=== PATIENT | female | born 1995 | race Caucasian/White ===

== ENCOUNTER 2018-09-05 06:00 | Inpatient (IN) ==
[2018-09-05] MEDS ORDERED: Famotidine 20 MG/2 ML VIAL IVP PRN (09:02)
[2018-09-05] MEDS ORDERED: Naloxone 0.4 MG/ML INJ IVP PRN (09:02)
[2018-09-05] MEDS ORDERED: Ondansetron 4 MG/2 ML VIAL IVP PRN (09:02)
[2018-09-05] MEDS ORDERED: Lidocaine -MPF 1% 5 ML AMPUL INFILT PRN (09:02)
[2018-09-05] MEDS ORDERED: *HR* Nalbuphine 10 MG/ML AMPUL IVP PRN (09:02)
[2018-09-05] MEDS ORDERED: miSOPROStol 25 MCG TABLET VG PRN (09:02)
[2018-09-05] MEDS ORDERED: Metoclopramide 10 MG/2 ML VIAL IVP PRN (09:02)
[2018-09-05] MEDS ORDERED: Ringers Solution, Lactated 1,000 ML IVC SCH (09:15)
[2018-09-05 09:35] LABS: Basophils % 0.3 %; Eosinophils # 0.1 K/mcL (0.0-0.6); Eosinophils % 0.9 %; Hematocrit 36.6 % (35.3-44.9); Hemoglobin 12.5 g/dL (11.5-15.4); Immature Granulocytes % 0.3 % (0-4); Lymphocytes # 1.8 K/mcL (0.6-4.6); Lymphocytes % 18.1 %; Mean Corpuscular HGB Conc 34.2 g/dL (31.6-35.5); Mean Corpuscular Hemoglobin 30.9 pg (28.0-33.3); Mean Corpuscular Volume 90.6 fL (83.0-100.0); Mean Platelet Volume 9.8 fL (9.4-12.4); Monocytes # 0.5 K/mcL (0.0-1.3); Neutrophils # 7.7 K/mcL (1.6-8.9); Platelet Count 238 K/mcL (140-400); Red Blood Count 4.04 M/mcL (3.82-4.97); Red Cell Distribution Width 13.5 % (11.5-14.5); Segmented Neutrophils % 75.4 %
[2018-09-05 09:42] LABS: Amphetamine Screen,Urine Negative ng/mL (Cutoff=1000); Barbiturate Screen,Urine Negative ng/mL (Cutoff=200); Benzodiazepines Screen,Urine Negative ng/mL (Cutoff=200); Cannabinoid Screen,Urine Negative ng/mL (Cutoff = 50); Cocaine Screen,Urine Negative ng/mL (Cutoff= 300); Opiate Screen,Urine Negative ng/mL (Cutoff=300); Phencyclidine Screen,Urine Negative ng/mL (Cutoff=25)
[2018-09-05 09:50] LABS: Alanine Aminotransferase 11 Units/L (7-52); Aspartate Amino Transferase 15 Units/L (13-39); BUN/Creatinine Ratio 10 (6-26); Blood Urea Nitrogen 6 mg/dL (6-20); Lactate Dehydrogenase 115 Units/L (140-271); Uric Acid 5.7 mg/dL (2.3-7.6); eGFR For Non-African Americans > 60 (> 60)
--- NOTE | 2018-09-05 10:16 | OB/GYN History & Physical ---
Date of Encounter: 09/05/18 Time of Encounter: 10:15 Assessment and Plan (1) 39 weeks gestation of Current visit: Yes Status: Acute @ 39 weeks, IOL, preeclampsia w/o severe features patient to start with cervidil, after cervidil, we'll try chawla bulb, CAT 1 History of Present Illness HPI: Ms. Sherwood is a 23 year old female @ 39+3 weeks who presents to the office for IOL. She is reporting aches and pains of but does not report LOF, VB or ctxs, feels good FM. On L&D, she presented with mild range pressures but denies symptoms of pre-eclampsia. GBS neg. Past Med Surg Social Fam HX - Past Medical History Medical history: asthma Psychiatric history: no psych history - Past Surgical History Surgical History: no surgical history - Social History Smoking Status: Current every day smoker Smokeless Tobacco Status: No Alcohol use: none Drug use: none - Family History Mother Name: layo sherwood Age: 45 Living Status: Still Living Hx Family Cardiac Disorders: (hypotenstion) Hx Family Respiratory Disorders: Yes (asthma) Hx Family Cancer: No Hx Family GI Disorders: No Hx Family Genitourinary Disorders: No Hx Family Endocrine Disorder: No Hx Family Musculoskeletal Disorders: No Hx Family Neuromuscular Disorders: No Hx Family Neurologic Disorders: No Hx Family HEENT Disorders: No Hx Family Autoimmune Disorders: No Hx Family Reproductive Disorders: No Hx Family Psychosocial Disorders: Yes (anxiety) Hx Family Medical Disorders: No Obstetrical History - Pregnancies : 1 Para: 0 Medications and Allergies Pnv Cmb#21/Iron/Folic Acid [ Complete Caplet] 1 tab PO DAILY 09/05/18 [History] Allergy/AdvReac Type Severity Reaction Status Date / Time Amoxicillin [From Augmentin] Allergy Difficulty Verified 07/15/18 07:04 Breathing clavulanic acid Allergy Difficulty Verified 07/15/18 07:04 [From Augmentin] Breathing Review of System OB All systems PM: reviewed and no additional remarkable complaints except as stated Exam - Constitutional Constitutional: no acute distress - HEENT HEENT: PERRL - Neck Neck exam: full ROM - Lungs Respiratory exam: CTAB - Cardiovascular Cardiovascular exam: RRR - Abdomen Abdomen: Present: gravid - Cervix Dilation: 0 Results Result Diagrams: 09/05/18 09:00 09/05/18 09:00 Abnormal lab results Lactate Dehydrogenase 115 Units/L (140-271) L 09/05/18 09:00 All other labs normal. - VTE Reasons for not Prescribing Prophylaxis: Treatment not Indicated - Low risk for VTE
--- NOTE | 2018-09-05 13:01 | OB Labor Progress Note ---
Date of Encounter: 09/05/18 Time of Encounter: 12:59 Labor Progress Note - Subjective Subjective: patient is feeling more of her ctxs, - Vital Signs Vital Signs: VSS - Cervix Cervix: FT - Heart Tones Heart Tones: CAT 1 - Plan Plan: she received cervidil @ 10:30Am, re-evaluate in 12 hrs
--- NOTE | 2018-09-05 16:01 | Anesthesia Evaluation PreOp ---
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: Denies Any Significant HX Other Medical History: Other (morbid obesity) Anesthesia History: No Prior Anesthetic Complications (never had NA; denies personal and family h/o GA complications), Past Anesthesia (BMTs) : Yes Alcohol Use: none Drug use: none Medications and Allergies Pnv Cmb#21/Iron/Folic Acid [ Complete Caplet] 1 tab PO DAILY 09/05/18 [History] Allergy/AdvReac Type Severity Reaction Status Date / Time Amoxicillin [From Augmentin] Allergy Difficulty Verified 07/15/18 07:04 Breathing clavulanic acid Allergy Difficulty Verified 07/15/18 07:04 [From Augmentin] Breathing - Meds/Allergy Pre-op Review Medications Reviewed: Yes Allergies Reviewed: Yes Beta Blockers on Current Med List: No Anesthesia Results - Labs 09/05/18 09:00 09/05/18 09:00 Anesthesia Exam 143/74, HR 95 O2 Sat Height 1.83 m Height 1.83 m Weight 161 kg Weight 161.3 kg NPO (# of Hours): >8hrs Pain Scale: 4 Pain Scale Used: Numeric (1 - 10) - HEENT Pupil (Motor): Pupils equal Mallampati: I Teeth: Normal Oral Opening: Greater than 3 - BOILER CONTROL ROOM OPERATOR LOC: Oriented BOILER CONTROL ROOM OPERATOR Motor: Normal RUE, Normal LUE, Normal RLE, Normal LLE, Normal Face BOILER CONTROL ROOM OPERATOR Sensory: Normal: RUE, LUE, RLE, LLE, Face - Cardiac Rhythm: Regular Murmur: None - Pulmonary Breath Sounds: bilateral Clear Respiratory Effort: Symmetrical Anesthesia Assess/Plan ASA Score: 3 Modified [place] Scale for Level of Consciousness: Cooperative, oriented, and tranquil Anesthetic Plan: Regional Autologous Blood: No Monitoring Plan: Standard Monitors Recovery Plan: Other
[2018-09-05] MEDS ORDERED: *HR* FentaNYL (PF) 100 MCG/2 ML VIAL EP ONE (16:02)
[2018-09-05] MEDS ORDERED: Bupivacaine-MPF 0.25% 10 ML VIAL EP ONE (16:02)
[2018-09-05] MEDS ORDERED: Epidural Premix (fent/bupiv) 110 ML EP SCH (16:15)
--- NOTE | 2018-09-05 18:03 | OB Labor Progress Note ---
Date of Encounter: 09/05/18 Time of Encounter: 18:02 Labor Progress Note - Subjective Subjective: patient is feeling her ctxs - Vital Signs Vital Signs: mild range pressures - Cervix Cervix: closed - Heart Tones Heart Tones: CAT 1 - Plan Plan: will remove cervidil at 10 and try cytotec, unable to place chawla due to closed cervix
[2018-09-05 18:09] LABS: Protein/Creatinine Ratio,Urine 0.4 mg/mg (0.00-0.20)
--- NOTE | 2018-09-05 22:39 | OB Labor Progress Note ---
Date of Encounter: 09/05/18 Time of Encounter: 22:37 Labor Progress Note - Subjective Subjective: Patient coping well with contractions. Has had one dose of Nubain. - Cervix Cervix: 1/50/-3 - Heart Tones Heart Tones: FHR 135 bpm, moderate variability, no accels, no decels. - Ryder Ryder: 2-3 minutes - Interventions Interventions: Cervidil removed. SVE Cervical chawla balloon placed without difficulty and 60 mL sterile water instilled. - Plan Plan: Gentle tug to chawla q hour Continue labor management Patient may have epidural when she desires.
--- NOTE | 2018-09-06 00:38 | OB Labor Progress Note ---
Date of Encounter: 09/06/18 Time of Encounter: 00:36 Labor Progress Note - Subjective Subjective: patient desires epidural - Vital Signs Vital Signs: VSS - Cervix Cervix: 1cm (chawla in place) - Heart Tones Heart Tones: CAT 1 - Plan Plan: ok for epidural, patient now has pre eclampsia based on BP and proteinuria, labs normal after chawla is out, start pitocin
--- NOTE | 2018-09-06 01:12 | Anesthesia Procedures ---
Date of Encounter: 09/06/18 Time of Encounter: 01:08 Procedures: Anesthesia - Epidural/Spinal Patient ID/Chart reviewed: Yes Patient examined: Yes OB Eval: Gestational age: 39 weeks 5 days OB Eval: : 1 OB Eval: Hx Para: 0 OB Eval: Dilated at (cm): 1 OB Eval: Contractions: Non-stressed pattern Consent Obtained: Yes Supplemental Oxygen: None/Room Air Site Prep: Aseptic Technique, Sterile prep and drape, Povidone-Iodine 1% Patient position: upright Local Anesthetic: Lidocaine 1% Amount of Local Anesthetic used: 3 Touhy Needle Gauge: 18 Touhy Needle Depth (cm): 8 Catheter Depth at Skin (cm): 13 Test Dose (1.5% Lido + Epi): Volume given (mls): 5 Test Dose Result: Negative Loading Dose: 0.25% Marcaine (mls): 5 Loading Dose: Fentanyl (mcg): 100 Loading Dose Administered: Thru Catheter Infusion Med: 0.125% Bupivacaine w/ 2 mcg/ml Fentanyl Infusion Rate (mls/hr): [address]: Tegaderm, Tape Interspace Used: L4-L5 Loss of Resistance (JOSELITO): Yes Blood: No CSF: No Paresthesia: No Procedure: successful on 1st attempt; Patient tolerated procedure well; VSS Vitals + FHT's: Please see Shakila OQUENDO's electronic records for VS entry
[2018-09-06] MEDS ORDERED: miSOPROStol 25 MCG TABLET VG PRN (06:30)
--- NOTE | 2018-09-06 06:48 | OB Labor Progress Note ---
Date of Encounter: 09/06/18 Time of Encounter: 06:44 Labor Progress Note - Subjective Subjective: patient is comfortable s/p epidural - Vital Signs Vital Signs: VSS - Cervix Cervix: chawla in - Heart Tones Heart Tones: CAT 1 - Plan Plan: 60cc in the chawla (no bulging upon tugging) cytotec 25mcg given vaginally
[2018-09-06] MEDS ORDERED: Oxytocin 20 units/ LR 1000 mL 20 UNIT/1,000 ML BAG IVC SCH (09:45)
[2018-09-06] MEDS ORDERED: *HR* FentaNYL (PF) 100 MCG/2 ML VIAL ONE ×2 (19:25→23:48)
[2018-09-06] MEDS ORDERED: Bupivacaine-MPF 0.25% 10 ML VIAL ONE ×2 (19:25→23:23)
[2018-09-06] MEDS ORDERED: SODIUM CHLORIDE 0.9% IVPB ONE (19:39)
[2018-09-06] MEDS ORDERED: GENTAMICIN IVPB ONE (19:39)
[2018-09-06] MEDS ORDERED: Acetaminophen 325 MG TABLET PO ONE (19:52)
--- NOTE | 2018-09-06 19:52 | OB Labor Progress Note ---
Date of Encounter: 09/06/18 Time of Encounter: 19:51 Labor Progress Note - Subjective Subjective: Pt reports pain improved - Heart Tones Heart Tones: tachycardia noted to 180's, moderate variability - Interventions Interventions: Pt repositioned. - Plan Plan: Plan for clinda and gent as well as tylenol. POC per Dr. Diane who has viewed tracing.
[2018-09-06] MEDS ORDERED: Clindamycin 900 MG/50 ML 900 MG/50 ML IV.SOLN IVPB SCH (20:00)
--- NOTE | 2018-09-06 23:58 | Anesthesia Procedures ---
Date of Encounter: 09/06/18 Time of Encounter: 23:25 Procedures: Anesthesia - Epidural/Spinal Patient ID/Chart reviewed: Yes Patient examined: Yes OB Eval: Gestational age: 39 OB Eval: : 1 OB Eval: Hx Para: 0 OB Eval: Dilated at (cm): 8 OB Eval: Contractions: Non-stressed pattern Consent Obtained: Yes Supplemental Oxygen: None/Room Air Site Prep: Aseptic Technique, Sterile prep and drape, Povidone-Iodine 1% Patient position: upright Local Anesthetic: Lidocaine 1% Amount of Local Anesthetic used: 5 Touhy Needle Gauge: 18 Touhy Needle Depth (cm): 8 Catheter Depth at Skin (cm): 18 Test Dose (1.5% Lido + Epi): Volume given (mls): 3 Test Dose Result: Negative Loading Dose: 0.25% Marcaine (mls): 10 Loading Dose: Fentanyl (mcg): 100 Loading Dose Administered: Thru Catheter Infusion Med: 0.125% Bupivacaine w/ 2 mcg/ml Fentanyl Infusion Rate (mls/hr): [address]: Tegaderm, Tape Interspace Used: L2-L3 Loss of Resistance (JOSELITO): Yes Blood: No CSF: No Paresthesia: No Procedure: called to LDR 12 for return of contraction pain /. Previous re-dose ineffective for relieving pain. Patient requests redo of epidural. Upon sitting patient up, catheter noted to have migrated out to about 6cm. Catheter d/c'd with blue tip intact. Placed epidural with ease into L2-3 space without incident. Test dose negative and dosed with loading dose with complete relief of contraction pain and VSS and FHTs stable. Vitals + FHT's: Vital Signs Time 2325 2340 2345 2350 2355 BP 124/6 131/69 128/67 136/78 128/60 Pulse 110 101 100 98 100 FHTs 140 140 140 140 140
--- NOTE | 2018-09-07 06:32 | Event Note ---
Date of Encounter: 09/07/18 Time of Encounter: 06:30 Called to bedside after uncomplicated delivery for extraction of placenta. Approximately 30 minutes of attempted conservative removal was performed and unfortunately, there was no success for delivery. An aggressive bimanual examination was performed and the placenta was adherent to the anterior fundal aspect of the placenta. A manual extraction of the placenta was performed, she was completely dilated and the pitocin was not yet initiated to ensure ability to manually detach the placenta. Complete removal of placenta was performed. One pass with a bedside banjo was performed. This was done gently and cautiously as to ensure NO uterine perforation following delivery. Minimal retained decidual tissue was removed and the IV pitocin was started. The uterus began to contract down and the bleeding was stopped. Fundus firm, EBL 300mL. Please see delivery note by Kamille Durand CNM for further details on delivery prior to placenta. MD VANDA
--- NOTE | 2018-09-07 06:34 | OB/GYN Procedure Note ---
Delivery - Delivery Date: 09/07/18 Provider: Kamille Durand Intrapartum events: febrile- temp >100.3, prolonged labor- > = 20hr Delivery induction: chawla, cervidil Delivery augmentation: rupture of membranes, pitocin Delivery monitor: internal FHT, internal uterine Anesthesia: epidural Quantitated Blood Loss: 300 - (s) Infant A Delivery Date: 09/07/18 Delivery Time: 05:39 Presentation: vertex Position: HEIDI Route of delivery: Gender: Female Viability: Viable Pounds: 7 Ounces: 13 Weight Gram: 3.555 kg at 1 minute: 8 at 5 mins: 9 Shoulder Dystocia: not encountered Specimens collected: cord blood Placenta: complete extraction (per Dr. Diane) Cord: 3 umbilical vessels - Repair Episiotomy: none Laceration Description: Perineal - 1st Degree - Complications Delivery complications: retained placenta Delivery comments: Pt presented for IOL and slowly progressed after cervidil, chawla, cytotec, and pitocin. She received epidural anesthesia. Her labor course was complicated by chorioamnionitis for which she was treated with Tylenol, Clindamycin, and Gent. She then pushed effectively to [facility] for viable female "Pamela" weighing 7lbs 13oz with apgars 8 at one minute and 9 at five minutes. After pulsations ceased, the cord was clamped and cut. A first degree perineal laceration was repaired with 2-0 monocryl. After a 30 minute delay, Dr. Diane was called for manual extraction of the placenta (see physician note). EBL 300ml. Mother and baby stable in kangaroo care following delivery. Plan for continued antibiotics for [address] Diane. Also, CNM notified at this time of low urine output. Plan for bolus and possibly repeat PIH labs per Dr. Diane. - Disposition Mom disposition: stable in LDR disposition: stable in LDR
[2018-09-07] MEDS ORDERED: Acetaminophen 325 MG TABLET PO PRN (08:03)
[2018-09-07] MEDS ORDERED: Oxytocin 20 units/ LR 1000 mL 20 UNIT/1,000 ML BAG IVC SCH (08:03)
[2018-09-07] MEDS ORDERED: Measles/Mumps/Rubella Vacc 0.5 ML VIAL SQ PRN (08:03)
[2018-09-07] MEDS ORDERED: NON-FORMULARY MEDICATION 1 EACH EACH (Pnv Cmb#21/Iron/Folic Acid [Prenatal Complete Caplet PO SCH (09:00)
[2018-09-07] MEDS ORDERED: Prenatal Vit/FA 1 EACH TABLET PO SCH (09:00)
[2018-09-07] MEDS: Doxycycline 100 MG in 0.9 % Sodium Chloride Mini Bag 100 ML IVPB SCH ×2 (09:19→22:54)
[2018-09-07] MEDS: Ibuprofen 600 MG TABLET PO PRN ×2 (11:19→20:10)
[2018-09-07] MEDS: Clindamycin 900 MG/50 ML 900 MG/50 ML IV.SOLN IVPB SCH (15:02)
[2018-09-07] MEDS ORDERED: Gentamicin 20 MG/2 ML VIAL IVPB ONE (20:00)
[2018-09-07] MEDS ORDERED: GENTAMICIN IVPB ONE (20:00)
[2018-09-07] MEDS ORDERED: SODIUM CHLORIDE 0.9% IVPB ONE (20:00)
[2018-09-08] MEDS: Clindamycin 900 MG/50 ML 900 MG/50 ML IV.SOLN IVPB SCH (00:01)
[2018-09-08] MEDS: Ibuprofen 600 MG TABLET PO PRN (04:25)
[2018-09-08 07:12] LABS: Alanine Aminotransferase 13 Units/L (7-52); Aspartate Amino Transferase 14 Units/L (13-39); BUN/Creatinine Ratio 15 (6-26); Blood Urea Nitrogen 12 mg/dL (6-20); Lactate Dehydrogenase 150 Units/L (140-271); Uric Acid 7.5 mg/dL (2.3-7.6); eGFR For Non-African Americans > 60 (> 60)
[2018-09-08 07:45] VITALS: BP 100/65
--- NOTE | 2018-09-08 08:22 | Discharge Summary ---
Date of Encounter: 09/08/18 Time of Encounter: 08:19 - Discharge Diagnosis (1) Vaginal delivery Priority: Primary Status: Acute Comments: Continue routine care discharge home today follow up with Dr. Van in 4-6 weeks (2) Breast feeding status of mother Priority: Secondary Status: Acute Comments: support prn - Discharge Medications Prescriptions: Ibuprofen [Motrin] 600 mg PO Q6HR PRN #60 tablet PRN Reason: Cramping Home Medications: Pnv Cmb#21/Iron/Folic Acid [ Complete Caplet] 1 tab PO DAILY 09/05/18 [History] Ibuprofen [Motrin] 600 mg PO Q6HR PRN #60 tablet 09/08/18 [Rx] Allergies/Adverse Reactions: Allergy/AdvReac Type Severity Reaction Status Date / Time Amoxicillin [From Augmentin] Allergy Difficulty Verified 07/15/18 07:04 Breathing clavulanic acid Allergy Difficulty Verified 07/15/18 07:04 [From Augmentin] Breathing Data Procedures and tests throughout hospitalization: Laboratory Tests 09/05/18 09/05/18 09/05/18 09:00 09:00 09:00 WBC 10.2 RBC 4.04 Hgb 12.5 Hct 36.6 MCV 90.6 MCH 30.9 MCHC 34.2 RDW 13.5 Plt Count 238 MPV 9.8 Immature Gran % 0.3 Seg Neutrophils % 75.4 Lymphocytes % 18.1 Monocytes % 5.0 Eosinophils % 0.9 Basophils % 0.3 Neutrophils # 7.7 Lymphocytes # 1.8 Monocytes # 0.5 Eosinophils # 0.1 Basophils # 0.0 BUN 6 Creatinine 0.61 Est GFR ( Amer) > 60 Est GFR (Non-Af Amer) > 60 BUN/Creatinine Ratio 10 Uric Acid 5.7 AST 15 ALT 11 Lactate Dehydrogenase 115 L Urine Creatinine Protein/Creatinin Ratio Urine Total Protein Urine Opiates Screen Negative Ur Barbiturates Screen Negative Ur Phencyclidine Scrn Negative Ur Amphetamines Screen Negative U Benzodiazepines Scrn Negative Urine Cocaine Screen Negative U Marijuana (THC) Screen Negative Ur Drug Screen Interp See Below 09/05/18 09/08/18 17:57 06:44 WBC RBC Hgb Hct MCV MCH MCHC RDW Plt Count MPV Immature Gran % Seg Neutrophils % Lymphocytes % Monocytes % Eosinophils % Basophils % Neutrophils # Lymphocytes # Monocytes # Eosinophils # Basophils # BUN 12 Creatinine 0.78 Est GFR ( Amer) > 60 Est GFR (Non-Af Amer) > 60 BUN/Creatinine Ratio 15 Uric Acid 7.5 AST 14 ALT 13 Lactate Dehydrogenase 150 Urine Creatinine 93 Protein/Creatinin Ratio 0.40 H Urine Total Protein 37 H Urine Opiates Screen Ur Barbiturates Screen Ur Phencyclidine Scrn Ur Amphetamines Screen U Benzodiazepines Scrn Urine Cocaine Screen U Marijuana (THC) Screen Ur Drug Screen Interp Labs on day of discharge: Labs from last 24 hours 09/08/18 06:44 BUN 12 Creatinine 0.78 Est GFR ( Amer) > 60 Est GFR (Non-Af Amer) > 60 BUN/Creatinine Ratio 15 Uric Acid 7.5 AST 14 ALT 13 Lactate Dehydrogenase 150 Date of admission: 09/05/18 08:52 Primary care physician: PCP NONE Consults: 09/07/18 08:03 Consult to Space Control Agent [CONS] Routine Comment: Vaginal delivery, consult needed Discharging clinician: Adrianne Navarrete Anticipated date of discharge: 09/08/18 - Patient Status Disposition: Home, Self-Care Condition: Good Functional capacity at discharge: independent ambulation - Discharge Instructions Follow Up With: NONE,PCP [Primary Care Provider] - Janes Van MD [Partnered Physician] - - Diet and Activity Activity: increase activity as tolerated Diet: regular diet Hospital Course Reason for admission: IUP - , induction of labor Delivery: Episiotomy: none Other procedures: none complications: none Discharge diagnosis: IUP at term delivered baby: female (breast feeding) Time Attestation: Total time spent providing and/or coordinating discharge services: Time Spent: Less than 30 minutes Exam - Constitutional Vitals: Temp Pulse Resp BP Pulse Ox 97.7 F 80 16 100/65 99 09/08/18 07:44 09/08/18 07:44 09/08/18 07:53 09/08/18 07:44 09/08/18 07:44 General appearance IM: A&O X 3, pleasant, answers questions appropriately - Respiratory Respiratory exam: Present: CTAB - Cardiovascular Cardiovascular exam IM: Present: RRR, +S1, +S2 - GI/Abdominal GI/Abdominal exam IM: normal bowel sounds - Uterine Tone: Firm Uterus Position: At Umbilicus, Midline - Extremities Exam Extremities exam IM: Present: full ROM, normal capillary refill, normal inspection - Neurological Exam Neurological exam: alert, oriented X3, reflexes normal
[2018-09-08] MEDS ORDERED: Clindamycin 900 MG/50 ML 900 MG/50 ML IV.SOLN IVPB SCH (09:00)
[2018-09-08 09:10] LABS: Basophils % 0.2 %; Eosinophils # 0.1 K/mcL (0.0-0.6); Hematocrit 29.9 % (35.3-44.9); Hemoglobin 10.2 g/dL (11.5-15.4); Immature Granulocytes % 0.8 % (0-4); Lymphocytes # 1.5 K/mcL (0.6-4.6); Lymphocytes % 11.3 %; Mean Corpuscular HGB Conc 34.1 g/dL (31.6-35.5); Mean Corpuscular Hemoglobin 31.1 pg (28.0-33.3); Mean Corpuscular Volume 91.2 fL (83.0-100.0); Monocytes # 0.6 K/mcL (0.0-1.3); Monocytes % 4.5 %; Neutrophils # 10.6 K/mcL (1.6-8.9); Platelet Count 158 K/mcL (140-400); Red Blood Count 3.28 M/mcL (3.82-4.97); Red Cell Distribution Width 13.9 % (11.5-14.5); Segmented Neutrophils % 82.2 %
== END 2018-09-08 10:50 | disposition home or self-care (01) | DRG 560 ==
LOC: 1NENULAB 08:52 → 1NENUOBS 09-07 07:43
PROVIDERS: ADMIT Student in an Organized Health Care Education/Training Program; ATTEND Student in an Organized Health Care Education/Training Program